=== PATIENT | male | born 1990 | race Caucasian/White ===

== ENCOUNTER 2016-10-08 18:24 | Emergency (ER) | payer BC ==
[2016-10-08 18:46] VITALS: BP 145/87; PULSE 82; RESP 18; TEMP 98.4
[2016-10-08] MEDS ORDERED: ORPHENADRINE 30 MG/ML 2 ML VIAL IM STA (19:24)
[2016-10-08] MEDS ORDERED: KETOROLAC 60 MG/2 ML VIAL IM STA (19:24)
--- NOTE | 2016-10-08 19:32 | ED ---
General Adult HPI - General Chief complaint: Back Pain/Injury Stated complaint: lower back injury Time Seen by Provider: 10/08/16 19:14 Source: patient, RN notes reviewed Mode of arrival: ambulatory Limitations: no limitations - History of Present Illness Initial comments: This is a 26-year-old male who presents with lower back pain after lifting weights today. Patient states he was doing leg presses and felt a pull in his lower back. Patient states his lower back has hurt him ever since. Patient states the pain is worse with standing and walking and is better while sitting, but still present. Patient denies any change in bowel or bladder function or loss of sensation to the saddle area. Patient denies any numbness/weakness or tingling or radicular pain. Patient denies any history of back pain. Patient denies any recent fever, chills, shortness breath, chest pain, abdominal pain, nausea/vomiting/diarrhea, hematuria, headache, or visual changes, or any other complaints. - Related Data Home Medications Medication Instructions Recorded Confirmed Multivitamins, Thera [Multivitamin] 1 tab PO DAILY 10/08/16 10/08/16 Previous Rx's Medication Instructions Recorded Cyclobenzaprine [Flexeril] 5 mg PO HS 3 Days 10/08/16 Allergies Allergy/AdvReac Type Severity Reaction Status Date / Time No Known Allergies Allergy Verified 10/08/16 19:11 Review of Systems ROS Statement: Those systems with pertinent positive or pertinent negative responses have been documented in the HPI. ROS Other: All systems not noted in ROS Statement are negative. Past Medical History Past Medical History: No Reported History History of Any Multi-Drug Resistant Organisms: None Reported Past Surgical History: No Surgical Hx Reported Past Psychological History: No Psychological Hx Reported Smoking Status: Never smoker Past Alcohol Use History: Occasional Past Drug Use History: None Reported General Exam - General Exam Comments Initial Comments: General: The patient is awake and alert, in no distress, and does not appear acutely ill. Neck: The neck is supple, there is no tenderness or JVD. No cervical midline tenderness. Cardiovascular: There is a regular rate and rhythm. No murmur, rub or gallop is appreciated. Respiratory: Lungs are clear to auscultation, respirations are non-labored, breath sounds are equal. No wheezes, stridor, rales, or rhonchi. Musculoskeletal: There is no tenderness to palpation of the lumbar spine or the lumbar paraspinal muscles bilaterally. There is no swelling, deformities, or ecchymosis to the lower back. Patient has pain in the lower back with standing. Full range of motion, strength 5/5 and Sensation intact. Radial pulses 2+ bilaterally. Negative straight leg raise bilaterally. Neurological: A&O x 3. CN II-XII intact, There are no obvious motor or sensory deficits. Coordination appears grossly intact. Speech is normal. Skin: Skin is warm and dry and no rashes or lesions are noted. Psychiatric: Normal mood and affect. Limitations: no limitations Course Vital Signs 10/08/16 18:44 Temperature 98.4 F Pulse Rate 82 Respiratory 18 Rate Blood Pressure 145/87 O2 Sat by Pulse 97 Oximetry Medical Decision Making - Medical Decision Making This is a 26-year-old male who presents with lower back pain after doing leg presses at the gym today. On physical exam there is no tenderness to palpation of the lumbar spine or the lumbar paraspinal muscles bilaterally. There is no swelling, deformities, or ecchymosis to the lower back. Full range of motion, strength 5/5 and Sensation intact. Radial pulses 2+ bilaterally. Patient is neurologically intact and able to ambulate. X-ray of the lumbar spine was done and reviewed showing: No acute processes. Reportedly Dr. Perry. Patient was given Toradol and Norflex in the [facility] today for pain. Discussed ice and/or warm heating pads to the area. Discussed [id number] Tylenol and/or Motrin as needed for pain. Discussed using Flexeril as prescribed. Discussed return parameters. Discussed that patient should follow up with PCP in one to 2 days or return to the [facility] for any worsening symptoms or for any further concerns. Patient was receptive to this plan and patient will be discharged home. Disposition Clinical Impression: Strain of lumbar region Disposition: HOME SELF-CARE Condition: Good Instructions: Acute Low Back Pain (ED) Additional Instructions: Please use ice or heating pads to the area. Please use [id number] Tylenol and/or Motrin as needed for pain. Please use Flexeril as prescribed. Please use medication as discussed. Please follow-up with family doctor in the next 2 days of symptoms have not improved. Please return to emergency room if the symptoms increase or worsen or for any other concerns. Prescriptions: Cyclobenzaprine [Flexeril] 5 mg PO HS 3 Days Time of Disposition: 19:53
--- NOTE | 2016-10-08 19:48 | XR ---
EXAMINATION TYPE: XR lumbar spine 2 or 3V DATE OF EXAM: 10/08/2016 7:32 PM COMPARISON: NONE HISTORY: Pain after lifting injury TECHNIQUE: 3 views FINDINGS: The bones and joints and disc spaces and soft tissues are unremarkable. There is no malalig nment. IMPRESSION: No acute processes.
== END 2016-10-08 19:57 | disposition home or self-care (01) ==
LOC: EC 18:24
DX: S39.012A Strain of muscle, fascia and tendon of lower back, initial encounter (principal); X50.0XXA Overexertion from strenuous movement or load, initial encounter; Y93.79 Activity, other specified sports and athletics; Y92.39 Other specified sports and athletic area as the place of occurrence of the external cause
CPT/HCPCS: 99283; 96372; 72100; J2360; J1885